=== PATIENT | male | born 1950 | race Caucasian/White ===

== ENCOUNTER 2019-01-03 09:24 | Emergency (ER) | payer MEDICARE, SELFPAY ==
[2019-01-03 09:27] VITALS: BP 140/82; PULSE 60; RESP 16; TEMP 36.8; O2SAT 97; BMI 26.4
--- NOTE | 2019-01-03 09:28 | EKG12_ITS ---
Test Reason : CP Blood Pressure : / mmHG Vent. Rate : 054 BPM Atrial Rate : 054 BPM P-R Int : 160 ms QRS Dur : 088 ms QT Int : 426 ms P-R-T Axes : 064 031 014 degrees QTc Int : 403 ms Sinus bradycardia Otherwise normal ECG Confirmed by JAMES LYN ([id number]), scientific publications editor IDA ORTIZ ([id number]) on 01/05/2019 11:42:41 AM Referred By: GWENDOLYN Confirmed By:ANA LUISA LYN
--- NOTE | 2019-01-03 09:28 | RAD_ITS ---
STUDY: X-RAY CHEST REASON FOR EXAM: Male, 68 years old. Chest pain. TECHNIQUE: PA and lateral views of the chest. COMPARISON: None. FINDINGS: EKG electrodes are seen. The lungs are clear and expanded. Scattered calcified granulomas. Blunting of the left cardiac phrenic angle. Normal size heart. Normal mediastinum and fabienne. Normal visualized pulmonary arteries. Normal visualized aortic arch and descending thoracic aorta. Normal visualized thoracic spine. Normal visualized ribs, clavicles, and shoulders. There is no demonstrated abnormality of the visualized soft tissue structures of the upper abdomen. RAD/Chest PA and Lateral IMPRESSION: There is blunting of the left costophrenic angle. No other abnormality is seen Electronically Signed: Tomas Zelaya, at 10:26 EDT , Service support ,
--- NOTE | 2019-01-03 09:28 | NURSING ---
NO OLD EKGS
[2019-01-03 09:35] VITALS: O2SAT 98
--- NOTE | 2019-01-03 09:39 | ED.VISSUMM ---
- ER Visit Summary Date of Service: 01/03/19 Chief Complaint: Chest pain History of Present Illness: The patient is a 68 M who presents for 18 hours of chest pain. Patient states pain is diffusely substernal but does not radiate into the back, abdomen, neck, jaw or arms. He had difficulty walking up stairs but states it was not due to shortness of breath or worsening chest pain. No associated fever, cough, shortness of breath, abdominal pain, nausea or vomiting or other complaints. He was seen by his primary care doctor who gave him 324 mg of aspirin and 1 nitro. Patient states the nitro did help and his pain is currently a 1-1/2 out of 10. Denies any previous cardiac history. States only medical problem is GERD. Does not smoke. All of his siblings have hypertension and his father developed congestive heart failure at a young age. Physical Examination: Vital signs: afebrile, hemodynamically stable, no hypoxia on room air General: well nourished, well developed, in no distress Skin: warm, dry, no rash, no pallor HEENT: normocephalic and atraumatic; PERRL, EOMI, moist mucous membranes Cardiovascular: regular rate and rhythm without murmurs, no peripheral edema, 2+ pulses all distal extremities Respiratory: No increased work of breathing, lungs are clear to auscultation bilaterally, no rales, rhonchi or wheezing Abdominal: Abdomen is soft, nontender with normoactive bowel sounds, no guarding or rebound, no masses MSK: Moves all extremities, no deformities, normal strength Neuro: Awake and alert, oriented ?4. No facial droop, sensation and motor function intact and symmetric Test Results: Abnormal Lab Results 01/03/19 01/03/19 01/03/19 09:32 09:32 12:33 WBC 9.7 RBC 5.30 Hgb 14.3 Hct 42.7 MCV 80.6 MCH 27.0 MCHC 33.5 RDW 14.4 RDW Differential 41.9 Plt Count 185 MPV 10.9 Immature Gran % (Auto) 0.200 Neut % (Auto) 41.2 L Lymph % (Auto) 48.9 H [place] % (Auto) 7.7 Eos % (Auto) 1.7 Baso % (Auto) 0.3 Absolute Neuts (auto) 4.0 Absolute Lymphs (auto) 4.73 H Total Counted Not Reportable Sodium 139 Potassium 4.1 Chloride 107 Carbon Dioxide 28.0 Anion Gap 4 L BUN 17 Creatinine 0.95 Estim Creat Clear Calc 78.98 Est GFR (MDRD) Af Amer 102 Est GFR (MDRD) Non-Af 84 BUN/Creatinine Ratio 17.8 Glucose 111 H Calcium 8.8 Troponin I 0.022 < 0.015 Clinical Impression(s) from Imaging Studies Chest X-Ray 01/03/19 09:28 IMPRESSION: There is blunting of the left costophrenic angle. No other abnormality is seen Electronically Signed: Tomas Garcia, at 10:26 EDT , Service support , Medications Given Discontinued Medications Al Hydroxide/Mg Hydroxide (Mylanta Ii) 30 ml PO X1 ONE Stop: 01/03/19 09:40 Last Admin: 01/03/19 10:06 Dose: 30 ml Lidocaine HCl (Xylocaine Viscous) 15 ml PO X1 ONE Stop: 01/03/19 09:40 Last Admin: 01/03/19 10:06 Dose: 15 ml Multi-Ingredient GI Drug () 1 each PO X1 ONE Stop: 01/03/19 09:39 Last Admin: 01/03/19 10:07 Dose: Not Given Nitroglycerin (Nitrostat) 0.4 mg SUBLINGUAL X1 ONE Stop: 01/03/19 09:40 Last Admin: 01/03/19 10:06 Dose: 0.4 mg Emergency Department Course and Treatment: Patient presents for evaluation of chest pain. The pain is been present for 18 hours now. Patient already had aspirin. He was given an additional nitro as well as a GI cocktail. Symptoms completely resolved after medication treatment. Chest x-ray showed no acute process. EKG showed sinus rhythm no ischemic changes. Troponin initially was within normal limits. Labs otherwise unremarkable. Patient has a HEART score of 3 for age and story. If patient did have a cardiac event and has had the pain for 18 hours straight, EKG changes or troponin change would be expected. Because of patient's low risk based on hisHEART 4, a 3-hour EKG and troponin was repeated. Repeat EKG showed no changes. Repeat troponin was less than 0.015. Patient will follow up with his primary care doctor for an outpatient stress test. He will continue medication for GERD. Patient was discharged home well-appearing with symptoms completely resolved. Treatment Plan: [] Disposition: [] Impression: Chest pain, GERD This note was generated with [employer] dictation software. It may contain incorrect words, spelling, and punctuation that were not noted in review of the chart prior to signing ED Disposition - Plan for ED Patient: Disposition: Home or Assisted Living Instructions: ED Chest Pain Atypical Unkn Cause Referrals: Bernardo Garrido MD [Primary Care Provider] - 2 Days Additional Instructions: Please follow-up with your primary care doctor for another evaluation and to discuss a stress test. If you have any worsening of your condition or any new concerning symptoms, please return immediately to the emergency department for another evaluation.
[2019-01-03 09:43] LABS: Absolute Lymphocyte Count 4.73 X10^3/ul (0.83-4.51); Basophil# 0.03 X10^3/uL; Basophil% 0.3 % (0-1); Eosinophil# 0.16 X10^3/uL; Eosinophils% 1.7 % (0-5); Hematocrit 42.7 % (40-54); Hemoglobin 14.3 g/dl (13.0-16.5); Lymphocyte # 4.73 X10^3/ul (4.0); Lymphocyte % 48.9 % (19-41); Mean Corp Hgb Conc 33.5 g/gl (32-36); Mean Corpuscular Volume 80.6 fL (80-94); Mean Platelet Vol. 10.9 fl (6.2-12.0); Monocyte# 0.74 X10^3/uL; Monocyte% 7.7 % (0-10); Neutrophil # 3.99 X10^3/uL (2.7-7.7); Neutrophil % 41.2 % (47-70); Platelet Count 185 K/mm3 (150-450); RBC Distribution Width CV 14.4 % (11.6-14.6); RBC Distribution Width SD 41.9 fl (35.1-43.9); White Blood Count 9.7 K/mm3 (4.4-11.0)
[2019-01-03 09:49] LABS: POSITIVE COUNT NO; POSITIVE DIFFERENTIAL NO; POSITIVE MORPHOLOGY NO
[2019-01-03 10:00] LABS: Anion Gap 4 (5-15); BUN 17 mg/dL (7-18); BUN/Creat Ratio 17.8 RATIO (10-20); Calcium,Total 8.8 mg/dL (8.5-10.1); Chloride 107 mmol/L (98-107); Creatinine, Serum 0.95 mg/dL (0.70-1.30); EST Glomerular Filtration Rate 84 mL/min (>60); Est Glom Filt Rate - Afr Amer 102 mL/min (>60); Estimated Creatinine Clearance 78.98 ml/min; Glucose 111 mg/dL (74-106); Potassium 4.1 mmol/L (3.5-5.1); Sodium Level 139 mmol/L (136-145)
[2019-01-03] MEDS: Mag Hydrox/Al Hydrox/Simeth 30 ML UDC PO (10:06)
[2019-01-03] MEDS: Nitroglycerin SL (ED/IMG/CATH) 0.4 MG TABLET SUBLINGUAL (10:06)
[2019-01-03 10:09] VITALS: BP 135/62; PULSE 63; RESP 14; O2SAT 98
[2019-01-03 11:13] VITALS: BP 121/72; PULSE 57; RESP 16; O2SAT 97
[2019-01-03 12:23] VITALS: BP 119/68; PULSE 62; RESP 13; O2SAT 96
--- NOTE | 2019-01-03 12:30 | EKG12_ITS ---
Test Reason : CP Blood Pressure : / mmHG Vent. Rate : 062 BPM Atrial Rate : 062 BPM P-R Int : 112 ms QRS Dur : 086 ms QT Int : 402 ms P-R-T Axes : 022 046 027 degrees QTc Int : 408 ms Normal sinus rhythm with sinus arrhythmia Normal ECG Confirmed by JAMES LYN ([id number]), visual effects editor IDA ORTIZ ([id number]) on 01/05/2019 11:42:07 AM Referred By: SAKIAN Confirmed By:ANA LIUSA LYN
[2019-01-03 13:46] VITALS: BP 131/79; PULSE 70; PULSE 71; RESP 17; O2SAT 97; O2SAT 99
== END 2019-01-03 13:51 | disposition home or self-care (01) ==
PROVIDERS: Emergency Provider Emergency Medicine; Family Provider Family Medicine; PCP Family Medicine
DX: R07.9 Chest pain, unspecified (principal); K21.9 Gastro-esophageal reflux disease without esophagitis
CPT/HCPCS: 71046; 80048; 84484; 85025; 93005; 99284; A4216

== ENCOUNTER → 2019-01-06 | Outpatient (CLI) | payer MEDICARE, SELFPAY ==
[2019-01-03 09:27] VITALS: BMI 26.4
[2019-01-06 10:52] LABS: D-Dimer Quantitative (DVT/PE) 0.37 FEU/ug/m (0.27-0.49)
== END | disposition home or self-care (01) ==
LOC: LABSPEC 10:20
PROVIDERS: Family Provider Family Medicine; PCP Family Medicine; Referring Provider Family Medicine; Visit Provider Family Medicine
DX: R07.9 Chest pain, unspecified (principal)
CPT/HCPCS: 85379

== ENCOUNTER → 2019-01-13 | Outpatient (CLI) | payer MEDICARE, SELFPAY ==
[2019-01-03 09:27] VITALS: BMI 26.4
--- NOTE | 2019-01-13 10:13 | STE_ITS ---
Reason For Study: CHEST PAIN Stress Results Protocol: Elliot Protocol Maximum Predicted HR: 154 bpm Target HR: 131 bpm % Maximum Predicted HR: 101 % DurationHeart Rate Stage (mm:ss) (bpm) BP BASELINE 69 138/80 STAGE 1 3:00 105 140/80 STAGE 2 3:00 131 144/76 STAGE 3 3:00 146 152/70 STAGE 4 1:31 155 158/68 RECOVERY 101 112/70 Stress Duration: 10:31 mm:ss Maximum Stress HR: 155 bpm Baseline Echocardiogram Findings The estimated ejection fraction is 65 %. Normal size and thickness. Bicuspid aortic valve. 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 Stress Echo Wall motion Data Resting WM Intermediate WM Stress WM Resting Wall Motion Wall Motion Stress No regional wall motion No regional wall motion abnormalities noted. abnormalities noted. EKG Data The baseline ECG displays normal sinus rhythm. The patient exercised according to the regular Elliot protocol for a total duration of 10:30. The maximum heart rate attained was 164 beats per minute. This was 106% of maximum predicted heart rate. The patient exercised into stage 4 of the Elliot protocol. During stress, there were no ST or T wave changes noted to suggest ischemia. No clinical angina was noted. Interpretation Summary The estimated ejection fraction is 65 %. Bicuspid aortic valve. 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 Normal, adequate, treadmill echocardiogram. Negative for ischemia by EKG and echocardiographic criteria. No anginal symptoms noted. Rare PVC noted. Appropriate blood pressure response to exercise. Above average exercise capacity for age. Test terminated due to target heart rate, leg discomfort and dyspnea. Final LVEF of 75%. No complications. Ordering Physician: Bernardo Garrido Referring Physician: Bernardo Garrido Performed By: Gabriella Max, SEVERO, RVT
== END | disposition home or self-care (01) ==
PROVIDERS: Family Provider Family Medicine; PCP Family Medicine; Referring Provider Family Medicine; Visit Provider Family Medicine
DX: R07.9 Chest pain, unspecified (principal)
CPT/HCPCS: 93017; 93350

== ENCOUNTER 2020-08-16 11:12 | Outpatient (RCR) | payer MEDICARE, SELFPAY | END 2020-08-16 23:59 | LOC: IMMUN 11:12 | PROVIDERS: PCP Family Medicine; Visit Provider Family Medicine | DX: Z23 Encounter for immunization (principal) | CPT/HCPCS: 0011A; 0012A; 91301 ==